=== PATIENT | female | born 1945 | race Caucasian/White ===

== ENCOUNTER → 2021-07-30 | Day surgery (SDC) | payer MEDICARE, MEDICAID ==
[~2021-07-30] VITALS: Ht 162.6 cm; Wt 45.4 kg
[~2021-07-30] MED LIST: AMLO10TA80 MT; ASPI-1497 MT; BACITRACIN 15GM TUBE TOP ONE; BUPIVACAINE HCL/PF 0.5% (5MG/ML) 10ML ONE; CALCIUM CHLORIDE 1GM/10ML SYR IV ONE; CEFAZOLIN SODIUM 1000MG/VIAL ONE; DEXAMETHASONE 4MG/ML 1ML VIAL ONE; FENTANYL CITRATE/PF 50MCG/ML 2ML VIAL ONE; FOLI0.8T23 MT; FURO40TA5 MT; HEPARIN 1000 UNITS/ML 10ML ONE; HEPARIN SODIUM 1,000 UNIT/1ML VIAL IV ONE; HYDR-4134 MT; HYDROMORPHONE HCL/PF 2MG/ML CPJ IV PRN; LABETALOL 5MG/ML SYR 20 MG/4 ML SYRINGE IV PRN; LEVO100T9 MT; LIDOCAINE HCL 1% 20ML VIAL (Pyxis) INJ ONE; MEPERIDINE HCL/PF 25MG/ML CPJ IV PRN; OMEP-265 MT; ONDANSETRON HCL 4MG/2ML INJ IV PRN; POLYMYXIN B SULFATE 500000 UNITS/VIAL ONE; SEVE800T8 MT; SODIUM CHLORIDE 0.9% 500 ML IV ONE; THROMBIN (BOVINE) 5000 UNITS/VIAL TOP ONE
[2021-07-30 10:07] LABS: BASOPHILS % 1.4 % (0.0-2.0); EOSINOPHILS % 3.2 % (0.0-5.0); HEMATOCRIT. 40.2 % (36.0-48.0); HEMOGLOBIN. 13.1 g/dL (12.0-16.0); LYMPHOCYTES % 24.5 % (20.0-50.0); MEAN CORPUSCULAR HEMOGLOBIN 32.4 pg (28.0-32.0); MEAN CORPUSCULAR VOLUME 99.2 fL (81.0-99.0); MEAN PLATELET VOLUME 7.1 fl (7.4-10.4); MONOCYTES % 12.8 % (2.0-8.0); NEUTROPHILS % 58.1 % (40.0-76.0); PLATELET 268 x1000/uL (130-400); RED BLOOD CELL COUNT 4.05 mill/uL (4.2-5.4); RED CELL DISTRIBUTION WIDTH 14.7 % (11.6-14.6)
[2021-07-30 10:26] LABS: PARTIAL THROMBOPLASTIN TIME 26.5 sec (23.4-31.0); PROTHROMBIN TIME 10.3 sec (9.6-11.0)
== END | disposition home or self-care (01) ==
LOC: OR 09:29
PROVIDERS: ATTEND Surgery Vascular Surgery
DX: I12.0 Hypertensive chronic kidney disease with stage 5 chronic kidney disease or end stage renal disease (principal); N18.6 End stage renal disease; E03.9 Hypothyroidism, unspecified; K21.9 Gastro-esophageal reflux disease without esophagitis; D64.9 Anemia, unspecified; Z79.82 Long term (current) use of aspirin; Z79.899 Other long term (current) drug therapy; Z98.890 Other specified postprocedural states; Z20.822 Contact with and (suspected) exposure to COVID-19
CPT/HCPCS: 36415; 36821; 80048; 85025; 85610; 85730; 87426; 93005; J0690; J1100; J1644; J3010; J3490; J7040

== ENCOUNTER 2021-09-15 08:22 | Day surgery (SDC) | payer MEDICARE, MEDICAID ==
[~2021-09-15] VITALS: Ht 162.6 cm; Wt 45.4 kg
[~2021-09-15 08:22] MED LIST changes: -BACITRACIN 15GM TUBE TOP ONE; -BUPIVACAINE HCL/PF 0.5% (5MG/ML) 10ML ONE; -CALCIUM CHLORIDE 1GM/10ML SYR IV ONE; -CEFAZOLIN SODIUM 1000MG/VIAL ONE; -DEXAMETHASONE 4MG/ML 1ML VIAL ONE; -FENTANYL CITRATE/PF 50MCG/ML 2ML VIAL ONE; -HEPARIN 1000 UNITS/ML 10ML ONE; -HEPARIN SODIUM 1,000 UNIT/1ML VIAL IV ONE; -HYDROMORPHONE HCL/PF 2MG/ML CPJ IV PRN; -LABETALOL 5MG/ML SYR 20 MG/4 ML SYRINGE IV PRN; -LIDOCAINE HCL 1% 20ML VIAL (Pyxis) INJ ONE; -MEPERIDINE HCL/PF 25MG/ML CPJ IV PRN; -ONDANSETRON HCL 4MG/2ML INJ IV PRN; -POLYMYXIN B SULFATE 500000 UNITS/VIAL ONE; -SODIUM CHLORIDE 0.9% 500 ML IV ONE; -THROMBIN (BOVINE) 5000 UNITS/VIAL TOP ONE
[2021-09-15 09:28] LABS: HEMATOCRIT. 39.5 % (36.0-48.0); HEMOGLOBIN. 13.3 g/dL (12.0-16.0); MEAN CORPUSCULAR HEMOGLOBIN 32.7 pg (28.0-32.0); MEAN CORPUSCULAR VOLUME 96.9 fL (81.0-99.0); MEAN PLATELET VOLUME 7.3 fl (7.4-10.4); PLATELET 269 x1000/uL (130-400); RED BLOOD CELL COUNT 4.08 mill/uL (4.2-5.4); RED CELL DISTRIBUTION WIDTH 14.3 % (11.6-14.6)
[2021-09-15 09:39] LABS: PARTIAL THROMBOPLASTIN TIME 30.7 sec (23.4-31.0); PROTHROMBIN TIME 10.8 sec (9.6-11.0)
[2021-09-15 09:59] LABS: PLATELET ESTIMATE NORMAL
[2021-09-15] MEDS ORDERED: BACITRACIN 15GM TUBE TOP ONE (10:02)
[2021-09-15] MEDS ORDERED: BUPIVACAINE HCL/PF 0.5% (5MG/ML) 30ML ONE (10:02)
[2021-09-15] MEDS ORDERED: THROMBIN (BOVINE) 5000 UNITS/VIAL TOP ONE (10:03)
[2021-09-15] MEDS ORDERED: HEPARIN SODIUM 1,000 UNIT/1ML VIAL IV ONE (10:03)
[2021-09-15] MEDS ORDERED: POLYMYXIN B SULFATE 500000 UNITS/VIAL ONE (10:04)
[2021-09-15] MEDS ORDERED: LIDOCAINE HCL 1% 20ML VIAL (Pyxis) INJ ONE ×2 (10:04→11:21)
[2021-09-15] MEDS ORDERED: PROPOFOL 200MG/20ML VIAL IV ONE (11:21)
[2021-09-15] MEDS ORDERED: FENTANYL CITRATE/PF 50MCG/ML 2ML VIAL ONE (11:21)
[2021-09-15] MEDS ORDERED: CEFAZOLIN SODIUM 1000MG/VIAL ONE (11:42)
[2021-09-15] MEDS ORDERED: PHENYLEPHRINE HCL 10 MG/ML 1ML (IV VIAL) IV ONE (11:44)
[2021-09-15] MEDS ORDERED: EPHEDRINE SULFATE 50MG/ML VIAL ONE (11:52)
[2021-09-15] MEDS ORDERED: HEPARIN 1000 UNITS/ML 10ML ONE (12:08)
== END 2021-09-15 15:50 | disposition home or self-care (01) ==
LOC: OR 08:22
PROVIDERS: ATTEND Surgery Vascular Surgery
DX: I12.0 Hypertensive chronic kidney disease with stage 5 chronic kidney disease or end stage renal disease (principal); N18.6 End stage renal disease; K21.9 Gastro-esophageal reflux disease without esophagitis; E03.9 Hypothyroidism, unspecified; D64.9 Anemia, unspecified; Z79.82 Long term (current) use of aspirin; Z79.899 Other long term (current) drug therapy; Z98.890 Other specified postprocedural states; Z20.822 Contact with and (suspected) exposure to COVID-19
CPT/HCPCS: 36415; 36821; 80048; 85025; 85610; 85730; 87426; 93005; J0690; J1644; J2370; J2704; J3010; J3490; J7030; J7040